=== PATIENT | female | born 1990 | race Two or more races ===

== ENCOUNTER 2016-09-28 01:24 | Inpatient (IN) | payer OTHER ==
[~2016-09-28] VITALS: Ht 167.6 cm; Wt 97.5 kg
[2016-09-28] MEDS ORDERED: Methylergonovine 0.2 mg/mL Inj IM PRN ×2 (08:00→19:50)
[2016-09-28] MEDS ORDERED: Oxytocin 10 Unit/mL Inj IM PRN ×2 (08:00→19:50)
[2016-09-28] MEDS ORDERED: Ondansetron 2 mg/mL 2 mL Inj IVPUSH PRN (08:00)
[2016-09-28] MEDS ORDERED: Carboprost 250 mCg/mL Inj IM PRN ×2 (08:00→19:50)
[2016-09-28] MEDS ORDERED: Hemorrhage Kit, Post Partum XX ONE ×2 (08:00→19:50)
[2016-09-28] MEDS ORDERED: Oxytocin 30 Units/500 mL LR 30 UNITS in IV Premix 1 EACH IV PRN ×2 (08:00→19:50)
[2016-09-28] MEDS ORDERED: Sodium Chloride LOK Flush 10 mL Syringe IVFLUSH PRN (08:00)
[2016-09-28] MEDS ORDERED: fentaNYL-PF 50 mCg/mL 2 mL Inj IVPUSH PRN (08:00)
[2016-09-28 08:32] LABS: Mean Corpuscular Hemoglobin 30.2 pg (27.0-35.0); Mean Corpuscular Volume 91.2 fL (81-100)
[2016-09-28] MEDS: Lactated Ringer's 1,000 ML IV PRN ×2 (09:35→10:11)
--- NOTE | 2016-09-28 10:04 | PCM.HPANE ---
Patient Data Surgeon Admitting Provider:Karine Fox MD Attending Provider:Karine Fox MD Primary Care Physician:Boyd Griffin MD Other Provider:Sidra Leone Anesthesia Reason for Visit Induction INDUCTION Ht/WT & BMI Body Mass Index Allergies Coded Allergies: acetaminophen (Verified Allergy, Unknown, 09/28/16) hydrocodone (Verified Allergy, Unknown, 09/28/16) Uncoded Allergies: DRY FRUIT (Allergy, Unknown, 09/28/16) NEOSPORIN (Allergy, Unknown, 09/28/16) SULFA (Allergy, Unknown, 09/28/16) WINE (Allergy, Unknown, 09/28/16) History Smoking Status: Never Smoker Stop/Bang Risk Assessment Category Category 1A: Patient has history of documented sleep apnea, and HAS NOT received any narcotic, sedative or anesthesia administration during this stay. Category 1B: Patient has history of documented sleep apnea, and HAS received any narcotic , sedative or anesthesia administration during this stay Category 2: Patient has SUSPECTED Obstructive Sleep Apnea, and HAS received any narcotic , sedative or anesthesia administration during this stay. Category 3: Patient has SUSPECTED Obstructive Sleep Apnea and HAS NOT received narcotic, sedative or anesthesia administration during this stay. Category 4: Outpatient in Procedural Areas with known sleep apnea or who screen positive for High Risk via the STOP/BANG questionnaire. Exam Exam General Appearance: Alert, Oriented X3, Cooperative, No Acute Distress HEENT/AIRWAY: MP 2 Lungs: Clear to Auscultation, Normal Air Movement Heart: Exam Unremarkable, Regular Rate/Rhythm, No Murmurs/Rubs/Gallops Meds/Labs/Diagnostics Labs Test 09/28/16 08:05 White Blood Count 9.6th/mm3 (3.8-10.1) Red Blood Count 3.97mil/mm3 (3.90-5.20) Hemoglobin 12.0g/dL (12.0-15.6) Hematocrit 36.2% (35.0-46.0) Mean Corpuscular Volume 91.2fL (81-100) Mean Corpuscular Hemoglobin 30.2pg (27.0-35.0) Mean Corpuscular Hemoglobin Concent 33.1% (32.0-37.0) Red Cell Distribution Width 14.0% (12.3-15.4) Platelet Count 209bil/L (150-400) Plan Impression Patient chart reviewed, patient interviewed and anesthestic plan with risks, benefits, and alternatives discussed, and informed consent obtained. ASA Physical Status: ASA2 Mod Systemic Disease Anesthetic Plan: Epidural Bene/Risks/Altern/Consents: Yes HP Complete Prior to Induction: Yes Yaya Yates MD Sep 28, 2016 10:04
--- NOTE | 2016-09-28 10:10 | PCM.HPOB ---
Subjective Date of Service: Sep 28, 2016 Referring Provider: Admitting Physician: Karine Fox MD Primary Care Physician: Boyd Griffin MD Attending Physician: Karine Fox MD Chief Complaint Induction of labor History of Present History of Present Illness Darshana is a 26yo with a hx of delivery for nonreassuring heart tones while in [facility]. She has presented to the center for induction of labor at 39 weeks gestation, she desires a . 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 She desires cord blood banking. aROM at 07 :53 this morning with a small amount of clear fluid, after sitting on the birthing ball, she has had a moderate amount of clear fluid per vagina. OB History: (2), Para (1) Past Medical History Obstetrical History: delivery after nonreassuring heart tones while in [facility]. She had IOL with that with induction measures over 3 days. Transverse uterine incision with vertical cutaneous incision. Surgical History: Appendectomy Right ACL repair Smoking Status: Never Smoker Hx Alcohol Use: No Hx Substance Use: No Past Family History Living Arrangement: with Family (Lives with her and son in [place]) Review of Systems Constitutional: Y: Chills, Fever Respiratory: Denies: Cough, Wheezing Gastrointestinal: Denies: Diarrhea, Nausea, Vomiting Genitourinary: Denies: Dysuria Skin: Denies: Rash Psychologic: Denies: Agitation, Depression Endocrine: Denies: Change in Appitite, Urinating frequently Medications Home medications Once daily vitamin Valtrex BID Allergy Coded Allergies: acetaminophen (Verified Allergy, Unknown, 09/28/16) hydrocodone (Verified Allergy, Unknown, 09/28/16) Uncoded Allergies: DRY FRUIT (Allergy, Unknown, 09/28/16) NEOSPORIN (Allergy, Unknown, 09/28/16) SULFA (Allergy, Unknown, 09/28/16) WINE (Allergy, Unknown, 09/28/16) Exam Vital Signs BP 118/65mmHg HR 95 RR 18 Temp 36.4 Exam Baseline FHR 145 Moderate variability Objective Patient seated on the birthing ball upon my entering the exam room, uncomfortable appearing. Constitutional: Well-developed, Well-nourished, Normal habitus, Well-groomed HEENT: Scleral Anicteric, Mucous Membr Moist/Ali Chuk Lungs: Clear to Auscultation, Normal Air Movement Heart: Regular Rate/Rhythm, No Murmurs/Rubs/Gallops Abdomen: Gravid, Normal bowel sounds, No tenderness Extremities: Warm, Edema (trace bilateral edema distal to the knee) Neurological/Psychiatric: Alert, Oriented X3, Cooperative, No Acute Distress Neuro: Grossly Neurologically Intact, Normal DTRs Additional Information Contractions every 2-4minutes Cervix posterior, 3.5cm dilated, 90% effaced, and head -1 station Labs/Diagnostics Labs Laboratory Tests 72 Hours Test 09/28/16 08:05 White Blood Count 9.6th/mm3 (3.8-10.1) Red Blood Count 3.97mil/mm3 (3.90-5.20) Hemoglobin 12.0g/dL (12.0-15.6) Hematocrit 36.2% (35.0-46.0) Mean Corpuscular Volume 91.2fL (81-100) Mean Corpuscular Hemoglobin 30.2pg (27.0-35.0) Mean Corpuscular Hemoglobin Concent 33.1% (32.0-37.0) Red Cell Distribution Width 14.0% (12.3-15.4) Platelet Count 209bil/L (150-400) Maternal Blood Type: O (Rh positive) Hx Rho(D) Immune Globulin: No Group B Strep Results: Negative Previous Infant with GBS: No Rubella: Immune Lab History: Positive for: Hx Chicken Pox (immune), Hx Herpes, Negative for: Hx Gonorrhea, Hx HIV, Hx Syphilis OB Intrapartum Assessment/Plan Assessment Darshana has signed consent for inductions of labor and a trial of labor after after discussion of the risks in clinic. She desires an epidural at this time. Problems: (1) Elective induction of labor planned Status: Acute ICD Code: [id number] (2) Encounter for trial of labor Plan: Plan for an epidural to be placed for pain management Status: Acute ICD Code: O33.4XX0 (3) History of delivery Status: Acute ICD Code: Z98.89 Attending Statement The patient was seen and examined together with Dr. Diallo on 09/28/2016 and I agree with the history, exam and plan as outlined in the note above. In addition , pelvic exam reveals no lesions and patient denies symptoms of genital HSV. AROM performed with minimal fluid for IOL. She understands risk of uterine rupture and need for CD and potential poor outcomes with rupture. She also understands despite TOLAC, she may still need a CD for indications such as NRFHT or arrest. / MD Yoel Brown Rachel M DO Sep 28, 2016 09:19 Tony De La Rosa MD Sep 28, 2016 15:57
[2016-09-28] MEDS ORDERED: fentaNYL 2 mCg/mL-Bupivicaine 0.125% 100 mL Premix EPIDURAL ONE (10:24)
[2016-09-28] MEDS ORDERED: Lactated Ringer's 500 ML IV ONE (10:36)
[2016-09-28] MEDS ORDERED: EPHEDrine Sulfate 50 mg/mL Inj IVPUSH PRN (10:40)
[2016-09-28] MEDS ORDERED: Atropine 1 mg/10 mL (Code) Syringe IVPUSH PRN (10:40)
[2016-09-28] MEDS ORDERED: fentaNYL 2 mCg/mL-Bupiv 0.125% 100 ML EPIDURAL SCH (10:40)
[2016-09-28] MEDS: Lactated Ringer's 1,000 ML IV SCH ×3 (14:53→21:07)
--- NOTE | 2016-09-28 16:02 | PCM.PNOBIP ---
Subjective Date of Service Sep 28, 2016 Delivery plan: Vaginal Delivery after Ceserean Visit History Darshana is a 26yo with a hx of delivery for nonreassuring heart tones while in [facility]. She has presented to the center for induction of labor at 39 weeks gestation, she desires a . Based on US on 09/14/16, EFW at the 99th percentile, 4400g. 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 She desires cord blood banking. AROM at 07 :53 this morning with a small amount of clear fluid, after sitting on the birthing ball, she has had a moderate amount of clear fluid per vagina. She had an epidural placed. At 12:30 she was found to be 8cm, at 14:30 9cm and at 15:00 complete and +1 station. She had a category 1 tracing throughout this duration of labor. Subjective Currently pushing. Doing well. Feels pressure. Epidural working well. Group B Strep Results: Negative Rubella: Immune Blood Type: O (Rh positive) Labs Laboratory Tests 09/28/16 08:05: White Blood Count 9.6, Red Blood Count 3.97, Hemoglobin 12.0, Hematocrit 36.2, Mean Corpuscular Volume 91.2, Mean Corpuscular Hemoglobin 30.2, Mean Corpuscular Hemoglobin Concent 33.1, Red Cell Distribution Width 14.0, Platelet Count 209 Exam Vital Signs Vital Signs Contraction frequency in minutes: MVUs: Vital Signs: VS reviewed, stable (116/61 87) Heart Tracings Heart Tones Baseline 140 bpm Heart Rate Variability: Moderate Heart Rate Accelleration: Present Heart Rate Deceleration: Present (variable deceleration with expulsive efforts with quick return to baseline and continued moderate variability) Tocometry/IUPC Contraction frequency in minutes: Q2min Sterile Vaginal Exam Cervical Dilation: 10 cms Cervical Effacement: 100 % Station: +2 Exam General: Alert, Oriented X3, Cooperative, No Acute Distress OB Intrapartum Assessment/Plan Assessment Darshana is a 26yo at 40w2d gestation her for IOL with h/o prior CD s/p AROM only for IOL and GBS negative. -Continue expulsive efforts. Anticipate . Problems: (1) Elective induction of labor planned Status: Acute ICD Code: [id number] (2) Encounter for trial of labor Status: Acute ICD Code: O33.4XX0 (3) History of delivery Status: Acute ICD Code: Z98.89 Tony De La Rosa MD Sep 28, 2016 16:02
--- NOTE | 2016-09-28 19:49 | PCM.OBVAG ---
Vaginal Delivery Date of Service Sep 28, 2016 Pre Operative Diagnosis Pre Operative Diagnosis Term , induced Post Operative Diagnosis Post Operative Diagnosis Term , delivered via Procedure Procedure: with repair of second degree perineal laceration Natural Fabricator/Bulbs Farmworker Provider and Bulbs Farmworker: Tony De La Rosa MD Resident: Therese Diallo DO HO3 Indication for Procedure Indication for Procedure kiet is a 26yo with a hx of delivery for nonreassuring heart tones while in [facility]. She has presented to the center for induction of labor at 40 weeks gestation, she desires a . Based on US on 09/14/16, EFW at the 99th percentile, 4400g. 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 She desires cord blood banking. AROM at 07 :53 this morning with a small amount of clear fluid, after sitting on the birthing ball, she has had a moderate amount of clear fluid per vagina. She had an epidural placed. At 12:30 she was found to be 8cm, at 14:30 9cm and at 15:00 complete and +1 station. She had a category 1 tracing throughout this duration of labor. Induction: Induction of labor, AROM, Progressed normally through labor Findings Obstetrical Findings: (Male), Cord (3 Vessel), Weight ( 10 lbs 8.2 oz/ 4770g ), Presentation (JENNIFER), 1 minute (8), 5 minutes (9), Placenta (Intact/Normal), Perineal Laceration (2nd degree) Analgesia/Medications Obstetrical Anesthesia: Epidural Procedure Details Procedure Details A sterile drape was placed under the patient's buttocks and with expulsive efforts, she delivered head JENNIFER which then restituted occiput maternal right. Loose nuchal cord x1 was reduced. Gentle, minimal downward traction provided and with 4 pushes the anterior shoulder was delivered followed by the remainder of the 's body. The male was placed on maternal abdomen. Warming and stimulating maneuvers were applied with assistance from nursing. Without quick resuscitation the team asked for the cord to be clamped and cut, the cord was clamped and cut without delay and the was then passed to the entertainment dancer. He began crying vigorously while being examined by the entertainment dancer. The was delivered at 18:21. Cord blood obtained in addition to a cord segment for cord blood banking. The placenta then delivered spontaneously intact at 18:26 with a three vessel cord. Uterus firmed with manual external massage. The perineum was examined and there was a 2nd degree tear which was repaired with 2-0 vicryl in the usual fashion. Instrument counts were correct x2 at the close of the procedure. Sponge counts not accounting for 1 sponge. The vagina was examined and the sponge was not found. The room and all areas examined, but no sponge found. The patient and infant tolerated the procedure well and pt is stable in her room, her baby. . IV Intake/Output Catheters: Straight (150mL clear urine collected.) Blood Loss & Administration Estimated Blood Loss: 275 Post Procedure Plan Post delivery Condition: Mom stable Attending Statement The patient was delivered together and perineal repair performed together with Dr. Diallo on 09/30/2015 and I agree with the note above. I was present for the entire procedure / MD Yoel Brown Rachel M DO Sep 28, 2016 19:41 Tony De La Rosa MD Sep 30, 2016 08:19
[2016-09-28] MEDS ORDERED: Benzocaine (Dermoplast) 20% 60 Gm Spray TOPICAL PRN (19:50)
[2016-09-28] MEDS ORDERED: Witch Hazel-Glycerin Pads TOPICAL PRN (19:50)
[2016-09-28] MEDS ORDERED: LANOlin HPA 7 Gm Ointment TOPICAL PRN (19:50)
[2016-09-29] MEDS: Lactated Ringer's 1,000 ML IV SCH ×5 (02:36→19:50)
--- NOTE | 2016-09-29 06:54 | PCM.PNOBPP ---
Subjective Date of Service Sep 29, 2016 Post : Vaginal Delivery after Ceserean Visit History Darshana is a 26yo G2 now P2 with a hx of delivery for nonreassuring heart tones while in [facility]. She has presented to the center on 09/29 for induction of labor at 40 weeks gestation and successfully had a of a male weighing 4770g. She had a 2nd degree laceration which was repaired immediately following delivery. Subjective Darshana reports that she has been having cramping overnight "like period cramps. " Her lochia has been normal. She has been ambulating to the bathroom and reports urinating without difficulty. Lochia: Normal Pain Management: PO pain meds Gastrointestinal: Good Appetite, No N/V, Passing Flatus Postop Activity: Ambulate without Assist, Ambulating in Room Only Group B Strep Results: Negative Rubella: Immune Blood Type: O (Rh positive) Labs Laboratory Tests 09/28/16 08:05: White Blood Count 9.6, Red Blood Count 3.97, Hemoglobin 12.0, Hematocrit 36.2, Mean Corpuscular Volume 91.2, Mean Corpuscular Hemoglobin 30.2, Mean Corpuscular Hemoglobin Concent 33.1, Red Cell Distribution Width 14.0, Platelet Count 209 Exam Vital Signs Vital Signs BP 109/63mmHg HR 99 RR 16 Temp 36.7 Vital Signs: VS reviewed, stable Exam Abdomen: Fundus firm (2 fingerbreadths inferior to the umbilicus) : Voiding without difficulty Extremities: No edema Lungs: Clear to Auscultation, Normal Air Movement Heart: Regular Rate/Rhythm, No Murmurs/Rubs/Gallops General: Alert, Oriented X3, Cooperative, No Acute Distress OB Post Assessment/Plan Assessment Darshana is doing well Problems: (1) , delivered, current hospitalization Status: Acute ICD Code: O34.21 (2) Encounter for trial of labor Status: Acute ICD Code: O33.4XX0 (3) History of delivery Status: Acute ICD Code: Z98.89 Pain Evaluation: Adequate Pain Control Post plan: Continue routine post care, Discharge home tomorrow Attending Statement I saw patient. Agree with above evaluation and plan Therese Diallo DO Sep 29, 2016 06:54 Karine Fox MD Oct 01, 2016 15:46
[2016-09-29 07:42] LABS: Mean Corpuscular Hemoglobin 30.3 pg (27.0-35.0); Mean Corpuscular Volume 92.4 fL (81-100)
[2016-09-29] MEDS ORDERED: DOCU-41 PO (14:28)
[2016-09-29] MEDS ORDERED: Benzocaine TOPICAL (14:28)
[2016-09-29] MEDS ORDERED: IBUP800T28 PO (14:28)
[2016-09-29] MEDS ORDERED: Phenylephrine-Mineral Oil 28 Gm Ointment RECTAL PRN (15:55)
--- NOTE | 2016-09-30 06:35 | PCM.DIOB ---
Obstetrical Disch Instruction Date of Service: Sep 30, 2016 Dates of Hospitalization Date of Hospital Admission Sep 28, 2016 at 07:15 Providers Admitting Physician: Karine Fox MD Primary Care Physician: Boyd Griffin MD Attending Physician: Karine Fox MD Discharge Diagnosis Problems: (1) , delivered, current hospitalization Status: Acute ICD Code: O34.21 Diet Discharge Diet: No restrictions Activity Discharge Activity-General: Pelvic Rest for 6 weeks, Be up and about, Balance rest and activity, No lifting >15 pounds for 2 weeks Dressing and Incisional Care Hygiene: May shower, NO bathtub, hot tub or whirlpool, Perineal care, Dermoplast spray, Witch Myriam pads Additional Instructions Discharge Instructions Please continue to take a once daily vitamin for at least 6 weeks or until you finish breast feeding To prevent constipation, you have been given a prescription for docusate to keep you regular, take 1 tablet by mouth twice daily. Be sure to follow up in 6 weeks at [facility] your post visit Pelvic rest for 6 weeks (nothing per vagina including intercourse, tampons) If you have a fever greater than 100.4, please call [facility]. There is always someone vice president of instruction to talk to. If you have an increase in bleeding, call [facility]. If you have a lot of bleeding suddenly, especially if you have symptoms of dizziness & weakness with it, get emergency help. If you start experiencing extreme depression, especially if you feel that you are a danger to yourself or your family, seek emergency help. You have been through a lot -- BE SURE TO TAKE CARE OF YOURSELF. Follow Up Plan Follow Up Plan Please call to schedule a post visit with [facility] in 6weeks Follow-up Provider (F9): Tony De La Rosa MD Follow-up appointment: Weeks (6) Call your provider for: Fever or Chills, Shortness of breath, Heavy vaginal bleeding, Heavy bleeding, Epigastric pain, Excessive constipation, Vaginal discomfort, Red painful breasts Therese Diallo DO Sep 29, 2016 14:33
--- NOTE | 2016-09-30 07:14 | PCM.DC.OB ---
Obstetrical Discharge Summary Date of Service Sep 30, 2016 Date of hospital admission Sep 28, 2016 at 07:15 Date of Discharge: Sep 30, 2016 Providers Admitting Physician: Karine Fox MD Primary Care Physician: Boyd Griffin MD Attending Physician: Karine Fox MD Problems: (1) , delivered, current hospitalization Status: Acute ICD Code: O34.21 Date of Procedure: Sep 28, 2016 Brief History and Physical: Darshana is a 26yo G2 now P2 with a hx of delivery for nonreassuring heart tones while in [facility]. 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 She presented to the center on 01/09 for induction of labor at 40 weeks gestation and successfully had a of a male infant weighing 4770g at 18:21 on 09/28/16. She had a 2nd degree laceration which was repaired immediately following delivery. She has done very well post , ambulating independently, eating well without nausea, her . Her pain has been well controlled with ibuprofen alone. Her lochia has been normal. Her vital signs remain normal and her umbilicus ([Benzocaine]) 1 SPRAY/GM SPRAY 1 SPRAY TOPICAL PRN PRN PRN for perineal pain Prescribed by: THERESE DIALLO DO Docusate Sodium (Colace) 100 Mg Capsule 100 MG PO BID Prescribed by: THERESE DIALLO DO Ibuprofen (Ibuprofen) 800 Mg Tablet 800 MG PO Q8H PRN PRN For Pain Prescribed by: THERESE DIALLO DO Disposition Home with and baby Follow-up plan Please call to schedule a post visit with [facility] in 6weeks Discharge Diet: No restrictions Discharge Activity-General: Pelvic Rest for 6 weeks, Be up and about, Balance rest and activity Patient instructions Please continue to take a once daily vitamin for at least 6 weeks or until you finish breast feeding To prevent constipation, you have been given a prescription for docusate to keep you regular, take 1 tablet by mouth twice daily. Be sure to follow up in 6 weeks at [facility] for your post visit Pelvic rest for 6 weeks (nothing per vagina including intercourse, tampons) If you have a fever greater than 100.4, please call [facility]. There is always someone television production technician to talk to. If you have an increase in bleeding, call [facility]. If you have a lot of bleeding suddenly, especially if you have symptoms of dizziness & weakness with it, get emergency help. If you start experiencing extreme depression, especially if you feel that you are a danger to yourself or your family, seek emergency help. You have been through a lot -- BE SURE TO TAKE CARE OF YOURSELF. Therese Diallo DO Sep 30, 2016 06:39
--- NOTE | 2016-09-30 07:25 | PCM.PNOBPP ---
Subjective Date of Service Sep 30, 2016 Post : Vaginal Delivery after Ceserean Visit History Darshana is a 26yo G2 now P2 with a hx of delivery for nonreassuring heart tones while in [facility]. 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 She presented to the center on 01/09 for induction of labor at 40 weeks gestation and successfully had a of a male infant weighing 4770g at 18:21 on 09/28/16. She had a 2nd degree laceration which was repaired immediately following delivery. Subjective Darshana report that she is feeling well this morning and would like to go home. She reports having very little pain. Lochia: Normal Pain Management: PO pain meds, Good Pain Control Gastrointestinal: Good Appetite, No N/V, Passing Flatus Postop Activity: Ambulating Independently, Ambulating in [place] Group B Strep Results: Negative Rubella: Immune Blood Type: O Labs Laboratory Tests 09/29/16 07:30: White Blood Count 18.4, Red Blood Count 3.80, Hemoglobin 11.5, Hematocrit 35.1, Mean Corpuscular Volume 92.4, Mean Corpuscular Hemoglobin 30.3, Mean Corpuscular Hemoglobin Concent 32.8, Red Cell Distribution Width 14.1, Platelet Count 207 Exam Vital Signs Vital Signs BP 93/58mmHg HR 65 RR 16 Temp 36.7 Vital Signs: VS reviewed, stable Exam Abdomen: Fundus firm (3 fingerbreadths inferior to the umbilicus) : Voiding without difficulty Extremities: No tenderness/swelling, No edema Lungs: Clear to Auscultation, Normal Air Movement Heart: Regular Rate/Rhythm, No Murmurs/Rubs/Gallops General: Alert, Oriented X3, Cooperative, No Acute Distress OB Post Assessment/Plan Problems: (1) , delivered, current hospitalization Status: Acute ICD Code: O34.21 Pain Evaluation: Adequate Pain Control Post plan: Continue routine post care, Anticipate discharge home today Therese Diallo DO Sep 30, 2016 07:23
--- NOTE | 2016-09-30 07:46 | PCM.ANEP2 ---
Post Anesthesia Evaluation ASA/CMS Post Anesthesia VS in Patient's Normal Range?: Yes Resp Stable; Airway Patent?: Yes CV Function & Hydration Stable: Yes Mental Status Recovered?: Yes Pain control Satisfactory?: Yes N/V Control Satisfactory?: Yes Yaya Yates MD Sep 30, 2016 07:46
--- NOTE | 2016-09-30 07:46 | PCM.ANEP1 ---
Post Anesthesia Phase 1 PACU Phase 1 Assessment Date of Service: Sep 28, 2016 Anesthetic Administered: Epidural Level of Alertness: Awake, talking GARIBAY's with Equal Strength: Yes Pain: No Pain Scale Score: 0 Oxygen Delivery: Room Air Lungs: Clear to Auscultation, Normal Air Movement Yaya Yates MD Sep 30, 2016 07:46
[2016-09-30 09:04] VITALS: BP 96/55; PULSE 64; RESP 18
== END 2016-09-30 12:00 | disposition home or self-care (01) | DRG 775 ==
LOC: FBC 07:15
PROVIDERS: ADMIT Obstetrics & Gynecology; ATTEND Obstetrics & Gynecology
PROC: 10907ZC Drainage of Amniotic Fluid, Therapeutic from Products of Conception, Via Natural or Artificial Opening (ICD-10-PCS; 2016-09-28)
PROC: 10E0XZZ Delivery of Products of Conception, External Approach (ICD-10-PCS; principal; 2016-09-29)
PROC: 0KQM0ZZ Repair Perineum Muscle, Open Approach (ICD-10-PCS; 2016-09-29)
DX: O70.1 Second degree perineal laceration during delivery (principal); O69.81X0 Labor and delivery complicated by cord around neck, without compression, not applicable or unspecified; O34.211 Maternal care for low transverse scar from previous cesarean delivery; Z37.0 Single live birth; Z3A.40 40 weeks gestation of pregnancy

== ENCOUNTER 2016-10-01 19:13 | Emergency (ER) | payer OTHER ==
[~2016-10-01 19:13] MED LIST: Benzocaine TOPICAL; DOCU-41 PO; IBUP800T28 PO
[2016-10-01 19:33] VITALS: BP 114/73; PULSE 80; RESP 18; O2SAT 100
--- NOTE | 2016-10-01 21:26 | ED.REPORT ---
HPI- Female Date of Service Oct 01, 2016 ED Provider: EmekaEd The patient is a 26 year old female () who presents to the ED 3 days post episiotomy complaining of right-sided vaginal pain/swelling and right leg pain since her procedure. She sustained a second degree laceration which was repaired following the procedure (no complications reported by repairing physician). She denies fever and any other symptoms at this time. Nursing Notes Stated Complaint: EPISIOTOMY PAIN/SWELLING Chief Complaint: & Delivery Nursing Notes Reviewed: Yes Allergies: Coded Allergies: hydrocodone (Verified Allergy, Unknown, 09/28/16) Uncoded Allergies: DRY FRUIT (Allergy, Unknown, 09/28/16) NEOSPORIN (Allergy, Unknown, 09/28/16) SULFA (Allergy, Unknown, 09/28/16) WINE (Allergy, Unknown, 09/28/16) Scheduled Docusate Sodium (Colace) 100 Mg Capsule 100 MG PO BID Scheduled PRN ([Benzocaine]) 1 SPRAY/GM SPRAY 1 SPRAY TOPICAL PRN PRN PRN for perineal pain Ibuprofen (Ibuprofen) 800 Mg Tablet 800 MG PO Q8H PRN PRN For Pain General Time Seen by MD: 21:25 Chief Complaint Other (episiotomy pain) Hx Obtained From: Patient Arrived By: Walk-in Sudden in Onset?: Yes Onset Occurred: 2 days ago Symptom Duration: Since onset Quality: Painful Severity: Current: Moderate Severity: Maximum: Moderate Recent Healthcare: Recent doctor visit, Recent hospitalization Similar Sx Previous: No Past Medical History Past Medical History Past Surgical History Episiotomy (09/28/16) Reports: Smoking History Never Smoker Social History Alcohol Use: Denies alcohol use Drug Use: Denies drug use Ambulatory Status Independent Review of Systems Review of Systems Note: Vaginal pain Constitutional: Denies: Fever GI: Denies: Abdominal pain, Nausea, Vomiting Female: Reports: Vaginal discharge Musculoskeletal: Reports: Extremity pain (right leg) Skin: Reports Swelling (vaginal, right sided) Complete sys rev & neg: except as marked. Physical Exam Initial Vital Signs Vital Signs (First) Date Time Temp Pulse Resp B/P Pulse Ox O2 Delivery O2 Flow Rate FiO2 10/01/16 19:33 36.8 80 18 114/73 100 Room Air Initial VS: Reviewed, Vital signs normal Head / Eyes: Atraumatic, Normocephalic, PERRL ENT: Mucous membranes moist, Conjunctiva normal, No scleral icterus Neck: Supple, Non-tender, Full range of motion Cardiovascular: Regular rate & rhythm, Heart sounds normal, Intact distal pulses Abdomen / GI: Soft, Non-tender, No guarding, No rebound, No distention Extremities: Vascular intact, Neuro intact, No swelling, No tenderness Skin: Warm, Dry, No cyanosis Neurologic: Alert, Oriented, Nonfocal Psychiatric: Mood/affect normal, Behavior normal, Normal thought content Female Genitourinary: Hammerer Helper present Healing episiotomy with some vaginal discharge No definite area of infection but some right-sided swelling General/Constitutional: Awake, Alert Distress / Hydration: Positive: Distress mild Re-Eval/Medical Decision Source of Hx: Old records Re-Evaluation/Progress : Time of Eval: 21:49 Re-Evaluation/Progress Note: Rechecked the patient. Discussed consult with Dr. Fox and plan for discharge. Follow-up instructions and RTER warnings given. The patient understands and agrees to the plan. All questions addressed. Consultation : Referral / Consult Name: Karine Fox MD Call Returned at: 21:40 Note: Discussed the patient's history and symptoms in detail with Dr. Fox OBROSALINA, who recommends starting the patient on Keflex and Flagyl. Counseled Regarding: Diagnosis, Need for follow-up, When/why to return to ED Discharge & Departure Departure Notes Episiotomy does appear to be getting infected, but without drainage or dehiscence.. The case was discussed with Dr. Fox. She recommended cephalexin 500 mg by mouth 3 times a day, #30 dispensed, metronidazole 500 mg by mouth 3 times a day, #21 dispensed, and oxycodone/acetaminophen 5/325 one pill every 4- 6 hours as needed for severe pain, #10 dispensed. Impression: Primary Impression: Infection of episiotomy Disposition: Home Discharge Condition All VS Reviewed: Yes Condition: Stable Patient Instructions: Episiotomy (ED) Additional Instructions: Episiotomy does appear to be getting infected. The case was discussed with Dr. Fox. She recommended cephalexin 500 mg by mouth 3 times a day, #30 dispensed, metronidazole 500 mg by mouth 3 times a day, #21 dispensed, and oxycodone/ acetaminophen 5/325 one pill every 4-6 hours as needed for severe pain, #10 dispensed. Call the clinic first thing Monday morning and let them know that you were seen in the emergency room and the doctor wanted to to follow up on Monday. You can also call me at [phone] between the hours of 9 PM and 6 AM for the next couple of days if you have any questions. Referrals: Boyd Griffin MD (PCP) Scribe Attestation Portions of this note were transcribed by Ray Barnes. I, Dr. Diehl, personally performed the history, physical exam and medical decision-making; I reviewed and confirmed the accuracy of the information in the transcribed note. Signed by: Heydi Roach, 10/01/16 21:53 copies to: Boyd Griffin MD, Howard L MD Oct 01, 2016 21:26 RAY BARNES Oct 01, 2016 21:38
[2016-10-01] MEDS ORDERED: _oxyCODONE/APAP 5-325 mg Tablet PO PRN (21:45)
[2016-10-02] MEDS ORDERED: _metroNIDAZOLE 500 mg Tablet PO SCH (08:30)
[2016-10-02] MEDS ORDERED: _Cephalexin 500 mg Capsule PO SCH (08:30)
== END 2016-10-01 22:25 | disposition home or self-care (01) ==
LOC: SED 19:13
DX: O86.0 Infection of obstetric surgical wound (principal); Y83.8 Other surgical procedures as the cause of abnormal reaction of the patient, or of later complication, without mention of misadventure at the time of the procedure; Y92.9 Unspecified place or not applicable; Y93.9 Activity, unspecified; Y99.9 Unspecified external cause status; Z88.2 Allergy status to sulfonamides; Z88.5 Allergy status to narcotic agent